=== PATIENT | female | born 1975 | race Caucasian/White ===

== ENCOUNTER 2023-07-15 10:00 | Day surgery (SDC) | payer OTHER ==
[~2023-07-15 10:00] MED LIST: Bupivacaine 0.5%/EPINEPHrine 1:200,000 50 ML MDV ONE; Dexamethasone 4 MG/ML SDV ONE; Glycopyrrolate 0.2 MG/ML 5 ML MDV ONE; Neostigmine Methylsulfate 10 MG/10 ML MDV ONE; Ondansetron 4 MG/2 ML SDV ONE; Propofol 200 MG/20 ML SDV ONE; Rocuronium 50 MG/5 ML Vial ONE; Succinylcholine 200 MG/10 ML MDV ONE; fentaNYL 250 MCG/5 ML SDV ONE
[2023-07-15] MEDS ORDERED: ceFAZolin 2 GM in Premix Bag 1 BAG IV ONE (10:30)
[2023-07-15] MEDS: Lactated Ringers 1,000 ML IV SCH (10:44)
[2023-07-15] MEDS: Acetaminophen 500 MG Tab PO ONE (10:48)
[2023-07-15] MEDS: Sodium Chloride 0.9% 75 ML IV ONE (11:26)
[2023-07-15] MEDS: Sodium Chloride 0.9% 10 ML Syringe FLUSH PRN (11:26)
[2023-07-15] MEDS: Iopamidol 612 MG/ML 100 ML Bottle IV PRN (11:26)
== END 2023-07-15 12:54 | disposition home or self-care (01) ==
LOC: JP.SDS 10:00
PROVIDERS: ATTEND Student in an Organized Health Care Education/Training Program
DX: K43.2 Incisional hernia without obstruction or gangrene (principal); F41.9 Anxiety disorder, unspecified; Z53.8 Procedure and treatment not carried out for other reasons; E66.9 Obesity, unspecified; Z68.28 Body mass index [BMI] 28.0-28.9, adult; Z90.710 Acquired absence of both cervix and uterus; Z79.899 Other long term (current) drug therapy; Z87.891 Personal history of nicotine dependence; Z88.2 Allergy status to sulfonamides
CPT/HCPCS: 74177; 74177-26; A9270-GY; J0330; J1100; J2405; J2704; J2710; J3010; J3490; J7120; Q9967

== ENCOUNTER 2023-07-22 08:05 | Observation (INO) | payer OTHER ==
[2023-07-22 08:27] LABS: HEMATOCRIT 39.7 % (34.3-46.0); HEMOGLOBIN 13.9 g/dL (11.2-15.5); MEAN CORPUSCULAR HEMOGLOBIN 31.4 pg (31.6-35.5); MEAN CORPUSCULAR VOLUME 89.8 fL (81.4-99.0); RED BLOOD CELL COUNT 4.42 M/uL (3.77-5.24); WHITE BLOOD CELL COUNT,WBC 6.1 K/uL (3.2-11.0)
[2023-07-22] MEDS: Acetaminophen 500 MG Tab PO ONE (08:36)
[2023-07-22 08:43] LABS: PROTHROMBIN TIME 9.9 sec (9.2-10.6)
[2023-07-22 08:48] LABS: A/G RATIO 1.1 (1.2-2.2); ALANINE AMINOTRANSFERASE,ALT 30 U/L (12-78); ALBUMIN 3.9 g/dL (3.4-5.0); ALKALINE PHOSPHATASE 87 U/L (46-116); ANION GAP 9.1 mmol/L (5.0-14.0); ASPARTATE AMNIOTRANSFERASE,AST 18 U/L (15-37); BILIRUBIN TOTAL 0.1 mg/dL (0.2-1.0); BLOOD UREA NITROGEN,BUN 16 mg/dL (7-18); CALCIUM 8.5 mg/dL (8.5-10.1); CARBON DIOXIDE,CO2 27 mmol/L (21-32); CHLORIDE,CL 106 mmol/L (100-108); CREATININE 0.9 mg/dL (0.6-1.0); ESTIMATED GFR 80 mL/min (>60); GLUCOSE RANDOM 78 mg/dL (74-106); POTASSIUM,K 3.9 mmol/L (3.6-5.2); PROTEIN TOTAL,TP 7.3 g/dL (6.4-8.2); SODIUM,NA 142 mmol/L (140-148)
[2023-07-22] MEDS ORDERED: ceFAZolin 2 GM in Sodium Chloride 0.9% 50 ML IV ONE (09:15)
[2023-07-22] MEDS ORDERED: Dexamethasone 4 MG/ML SDV ONE (09:22)
[2023-07-22] MEDS ORDERED: Neostigmine Methylsulfate 10 MG/10 ML MDV ONE (09:22)
[2023-07-22] MEDS ORDERED: Ondansetron 4 MG/2 ML SDV ONE (09:22)
[2023-07-22] MEDS ORDERED: Propofol 200 MG/20 ML SDV ONE (09:22)
[2023-07-22] MEDS ORDERED: Rocuronium 50 MG/5 ML Vial ONE (09:22)
[2023-07-22] MEDS ORDERED: Glycopyrrolate 0.2 MG/ML 5 ML MDV ONE (09:22)
[2023-07-22] MEDS ORDERED: fentaNYL 250 MCG/5 ML SDV ONE ×2 (09:23→10:15)
[2023-07-22] MEDS: Lactated Ringers 1,000 ML IV SCH (09:38)
[2023-07-22] MEDS: ceFAZolin 2 GM in Premix Bag 1 BAG IV ONE (10:41)
[2023-07-22] MEDS: Bupivacaine 0.5%/EPINEPHrine 1:200,000 50 ML MDV ONE (11:09)
[2023-07-22] MEDS ORDERED: Lactated Ringers 1,000 ML ONE (11:36)
[2023-07-22] MEDS ORDERED: Sennosides/Docusate Sodium 50-8.6 MG Tab PO PRN (13:03)
[2023-07-22] MEDS: Acetaminophen 1,000 MG in Premix Bag 1 BAG IV SCH (14:45)
[2023-07-22] MEDS: RIZATRIPTAN 10 MG PO PRN (16:09)
[2023-07-22] MEDS: oxyCODONE 5 MG Tab PO PRN (16:10)
[2023-07-22] MEDS: Ondansetron 4 MG/2 ML SDV IVPUSH PRN (19:14)
[2023-07-22] MEDS: Ketorolac 15 MG/ML SDV IVPUSH PRN (21:13)
[2023-07-23 06:11] LABS: HEMATOCRIT 38.3 % (34.3-46.0); HEMOGLOBIN 13.3 g/dL (11.2-15.5); MEAN CORPUSCULAR HEMOGLOBIN 31.2 pg (31.6-35.5); MEAN CORPUSCULAR HGB CONC 34.7 g/dL (31.6-35.5); MEAN CORPUSCULAR VOLUME 89.9 fL (81.4-99.0); RED BLOOD CELL COUNT 4.26 M/uL (3.77-5.24); WHITE BLOOD CELL COUNT,WBC 10.8 K/uL (3.2-11.0)
[2023-07-23 06:32] LABS: A/G RATIO 1.1 (1.2-2.2); ALANINE AMINOTRANSFERASE,ALT 26 U/L (12-78); ALBUMIN 3.6 g/dL (3.4-5.0); ALKALINE PHOSPHATASE 85 U/L (46-116); ASPARTATE AMNIOTRANSFERASE,AST 18 U/L (15-37); BILIRUBIN TOTAL 0.4 mg/dL (0.2-1.0); BLOOD UREA NITROGEN,BUN 12 mg/dL (7-18); CALCIUM 8.5 mg/dL (8.5-10.1); CARBON DIOXIDE,CO2 28 mmol/L (21-32); CHLORIDE,CL 103 mmol/L (100-108); CREATININE 0.9 mg/dL (0.6-1.0); EST CRCL DRUG DOSING (CG) 68.16 mL/min; ESTIMATED GFR 80 mL/min (>60); GLUCOSE RANDOM 89 mg/dL (74-106); MAGNESIUM 1.8 mg/dL (1.8-2.4); PHOSPHORUS 3.1 mg/dL (2.5-4.9); POTASSIUM,K 4.1 mmol/L (3.6-5.2); PROTEIN TOTAL,TP 6.8 g/dL (6.4-8.2); SODIUM,NA 139 mmol/L (140-148)
[2023-07-23 06:33] LABS: ANION GAP 12.1 mmol/L (5.0-14.0)
[2023-07-23] MEDS: Sertraline 50 MG Tab PO SCH (07:59)
[2023-07-23] MEDS: Ketorolac 15 MG/ML SDV IVPUSH SCH (09:40)
[2023-07-23] MEDS: Acetaminophen/HYDROcodone 325-5 MG Tab PO PRN (09:40)
== END 2023-07-23 15:00 | disposition home or self-care (01) ==
LOC: JP.SDS 08:05 → JP.MS 13:03
PROVIDERS: ADMIT Student in an Organized Health Care Education/Training Program; ATTEND Student in an Organized Health Care Education/Training Program
DX: K43.2 Incisional hernia without obstruction or gangrene (principal); K42.9 Umbilical hernia without obstruction or gangrene; G43.909 Migraine, unspecified, not intractable, without status migrainosus; Z90.710 Acquired absence of both cervix and uterus; Z87.891 Personal history of nicotine dependence; Z79.899 Other long term (current) drug therapy; Z88.2 Allergy status to sulfonamides
CPT/HCPCS: 36415; 49595; 64488; 80053; 83735; 84100; 85027; 85610; 87635; 96374; 96376; A9270; C1713; C1781; G0378; J0131; J0690; J1100; J1885; J2405; J2704; J2710; J3010; J3490; J7120; U0002